=== PATIENT | female | born 1975 | race African-American/Black ===

== ENCOUNTER 2024-03-12 18:29 | Emergency (ER) | payer OTHER ==
[~2024-03-12] VITALS: Ht 170.2 cm; Wt 86.4 kg
[2024-03-12 19:30] VITALS: PULSE 83; RESP 16; O2SAT 96
[2024-03-12] MEDS: ONDANSETRON HCL 4 MG/2 ML VIAL IV ONE ×2 (19:38→21:43)
[2024-03-12] MEDS: MORPHINE SULFATE 4 MG/ML SYR/VIAL IV ONE ×2 (19:39→21:44)
[2024-03-13] MEDS: MORPHINE SULFATE 4 MG/ML SYR/VIAL IV ONE (01:10)
[2024-03-13] MEDS ORDERED: ONDANSETRON HCL 4 MG/2 ML VIAL IV SCH (02:00)
[2024-03-13] MEDS: ONDANSETRON HCL 4 MG/2 ML VIAL IV PRN (08:09)
[2024-03-13] MEDS: MORPHINE SULFATE 4 MG/ML SYR/VIAL IV PRN (08:09)
[2024-03-13 13:30] VITALS: BP 136/85; PULSE 80; RESP 15; TEMP 98.1; O2SAT 100
== END 2024-03-13 14:12 | disposition short-term general hospital (02) ==
LOC: EDBD 18:29 → ER 18:29
DX: S82.141A Displaced bicondylar fracture of right tibia, initial encounter for closed fracture (principal); Z88.0 Allergy status to penicillin; V87.8XXA Person injured in other specified noncollision transport accidents involving motor vehicle (traffic), initial encounter; Y93.I9 Activity, other involving external motion; Y92.410 Unspecified street and highway as the place of occurrence of the external cause; Y99.8 Other external cause status
CPT/HCPCS: 29505; 51702; 73030; 73700; 96374; 96375; 96376; 99285; J2270; J2405